=== PATIENT | female | born 1985 | race Caucasian/White ===

== ENCOUNTER → 2020-08-07 | Outpatient (CLI) | payer BC ==
[~2020-08-07] MED LIST: ANUSOL-HC SUPPO25 MG RC; LANOLIN OIL1 OIL; MOTRIN 600600 MG/TAB PO; MOTRIN 800800 MG/TAB PO; NO HOME MEDICATIONS; PERCOCET 325 MG1 TA2 PO; PRENATAL VITAMI1 TA5 PO; PRENATAL1 TA1
== END ==
LOC: COL.RAD 10:03
DX: R41.3 Other amnesia (principal)
CPT/HCPCS: A9585

== ENCOUNTER 2023-04-16 20:02 | Emergency (ER) | payer SELFPAY ==
[~2023-04-16] VITALS: Ht 149.9 cm; Wt 49.1 kg
[2023-04-16] MEDS ORDERED: Ondansetron 4 MG/2 ML VIAL IV ONE (20:15)
[2023-04-16 20:24] LABS: BASO % 0.4 % (0.0-2.0); EOS # 0.1 K/mm3 (0.0-0.7); EOS % 0.7 % (0.0-4.0); GRAN # 5.5 K/mm3 (1.4-6.5); GRAN % 74.9 % (42.2-75.2); HEMATOCRIT 42.4 % (37.0-47.0); HEMOGLOBIN 14.5 g/dl (12.5-16.0); LYMPH # 1.5 K/mm3 (1.2-3.4); LYMPH % 20.4 % (20.0-51.0); MEAN CELL VOLUME 89 fl (80.0-100.0); MEAN CORPUSCULAR HEMOGLOBIN 31 pg (27-31); MEAN CORPUSCULAR HGB CONC 34 g/dl (33.0-37.0); MEAN PLATELET VOLUME 11.3 fl (7.4-10.4); MONO # 0.2 K/mm3 (0.1-0.6); MONO % 3.2 % (1.7-9.3); PLATELET COUNT 185 K/mm3 (130-400); RED BLOOD COUNT 4.76 M/mm3 (4.10-5.30); REDCELL DISTRIBUTION WIDTH-CV 11.9 % (11.5-14.5)
[2023-04-16] MEDS ORDERED: Ketorolac 15 MG/ML VIAL IV ONE (20:30)
[2023-04-16 20:40] LABS: ALBUMIN 4.7 gm/dL (3.5-5.0); BILIRUBIN,TOTAL 0.5 mg/dL (0.2-1.2); CREATININE, serum 0.8 mg/dL (0.57-1.11); POTASSIUM 3.6 mmol/L (3.5-4.5); TOTAL PROTEIN 7.9 gm/dL (6.2-8.1)
[2023-04-16 20:46] LABS: TROPONIN-I 0.014 ng/mL (0.00-0.033)
[2023-04-16 23:54] VITALS: BP 104/63; PULSE 83; TEMP 98.4
== END 2023-04-16 23:54 | disposition home or self-care (01) ==
LOC: COL.ER 20:02
PROVIDERS: Nurse Practitioner
DX: R07.89 Other chest pain (principal); Z87.39 Personal history of other diseases of the musculoskeletal system and connective tissue
CPT/HCPCS: J1885; J2405